=== PATIENT | female | born 1960 | race Caucasian/White ===

== ENCOUNTER 2016-08-08 01:04 | Emergency (ER) | payer OTHER ==
[~2016-08-08] VITALS: Ht 167.6 cm; Wt 67.0 kg
[~2016-08-08 01:04] MED LIST: APIX2.5T PO; APIX5TAB PO; CALCTAB23; FURO20 PO; GABA300C3 PO; HYDR-3129 PO; LIPI10TA PO; POTA20PA PO; PROT40TA PO; ST J81CH PO; TOPA25TA8 PO; ULTR50TA PO; VITA100L SUCK-ON; VITA50TA30 PO; ZOFR4TAB3 SL
[2016-08-08 01:08] VITALS: BP 103/56; PULSE 79; RESP 16; TEMP 97.1; O2SAT 97
== END 2016-08-08 02:26 | disposition left against medical advice (07) ==
LOC: NED 01:04
DX: Z04.9 Encounter for examination and observation for unspecified reason (principal)
CPT/HCPCS: 99281

== ENCOUNTER 2016-08-11 13:25 | Emergency (ER) | payer OTHER ==
[~2016-08-11] VITALS: Ht 165.1 cm; Wt 63.0 kg
[2016-08-11 13:27] VITALS: BP 101/59; PULSE 81; RESP 15; TEMP 97.8; O2SAT 98
--- NOTE | 2016-08-11 13:48 | PD ---
Physical Exam Time Seen by Provider: 13:44 Narrative 56yo F with c/o R hip pain since after hearing a "pop" while trotting on a horse. She did fall from a horse over a week ago Monday w/ a little R hip pain at that time. Cannot bear weight. Denies fever. Reports nausea w/o vomiting. Patient stable. Patient seen in triage. Awaiting bed placement. Data Data Last Documented VS Vital Signs Date Time Temp Pulse Resp B/P Pulse Ox O2 Delivery O2 Flow Rate FiO2 08/11/16 13:27 97.8 81 15 101/59 98 MDM Supervised Visit with JOSSELINE: Kat Kaur Aug 11, 2016 13:48
--- NOTE | 2016-08-11 13:54 | PD ---
HPI . right hip pain Chief Complaint: Injury Time Seen by Provider: 13:54 Travel History International Travel<30 days: No Contact w/Intl Traveler<30days: No Traveled to known affect area: No History of Present Illness HPI 56-year-old female with history of hyperlipidemia, migraine, osteoarthritis, GERD, CVA in 2013, multiple TIAs here with complaints of right hip pain for over one week. Patient was riding a horse when she somehow slipped off the saddle and hurt her right hip. She is been working despite the pain and shortly after her initial injury she somehow hurt herself while trotting on another horse. She is now complaining of pain in the right hip. She is unable to bear weight and states the pain is 9/10 without further radiation. She tried to see her primary care provider, but there was some discrepancy as far as insurance coverage whether or not this was a workers comp case. Patient said that her initial injury happened at someone else's house on another horse. She tells me that the second injury occurred while at work, however she is not seeking workers comp. She denies any head injury or loss of consciousness. She has no other complaints. PFSH Past Medical History Arthritis: Yes (FEET, BACK, RIGHT HIP) Asthma: No Anxiety: Yes Depression: Yes Heart Rhythm Problems: Yes (HX SVT ABLATION-2008) Cancer: No Cardiovascular Problems: Yes (SVT / ABLATION) High Cholesterol: No Chest Pain: Yes Congestive Heart Failure: No COPD: No Cerebrovascular Accident: Yes Diabetes: No Diminished Hearing: Yes (RIGHT EAR HEARING LOSS) Endocrine: No Gastrointestinal Disorders: Yes (GERD, ESOPH. STRICTURE, DUOD. ULCER HX) GERD: Yes Genitourinary: No Hepatitis: Yes (HEP C TITER POS. NON-ACTIVE) Hiatal Hernia: Yes Immune Disorder: No Kidney Stones: No Musculoskeletal: Yes (ARTHRITIS, CERVICAL FUSION) Neurologic: Yes (TIA HX, NUMBNESS HANDS/ FEET) Psychiatric: No Reproductive: No Respiratory: Yes (BRONCHITIS) Renal Failure: No Sleep Apnea: No Thyroid Disease: No Ulcer: Yes (HX DUODENAL ULCER) ?: Not Menopausal: Yes : 3 Para: 1 Miscarriage: 1 : 1 Tubal Ligation: Yes Past Surgical History Abdominal Surgery: Yes (CHOLECYSTECTOMY) AICD: No Body Medical Devices: CERVICAL HARDWARE Cardiac Surgery: Yes (SVT, ABLATION-2008) Cholecystectomy: Yes Ear Surgery: Yes (MULTIPLE PE TUBES) Gynecologic Surgery: Yes (TUBAL LIG.) Joint Replacement: No Neurologic Surgery: Yes (CERVICAL FUSION C5-7) Oral Surgery: Yes (T & A) Pacemaker: No Tonsillectomy: Yes Other Surgery: Yes (LIVER BIOPSY-05/23/13 BONE SPUR SURGERY -10/2012, BROKEN NOSE REPAIRED X 2) Family History Family Hypercholesterolemia: Yes Social History Alcohol Use: No (HX OF ) Tobacco Use: No (QUIT 1988) Substance Use: No (QUIT ) Allergies-Medications (Allergen,Severity, Reaction): Coded Allergies: Adhesives (Verified Allergy, Severe, BLISTERS, 08/11/16) Iodinated Contrast Media (Verified Allergy, Severe, NAUSEA, 08/11/16) Reported Meds & Prescriptions Reported Meds & Active Scripts Active Reported Zofran ODT (Ondansetron HCl) 4 Mg Tab 4 Mg SL Q6H PRN FOR NAUSEA/VOMITING Calcium 500 + D (Calcium Carbonate-Vitamin D) +D Tab Vitamin B 6 (Pyridoxine HCl) 50 Mg Tab 50 Mg PO DAILY Ultram (Tramadol HCl) 50 Mg Tab 50 Mg PO Q4H PRN Aspirin 81 mg chewable (Aspirin) 81 Mg Chw 81 Mg PO DAILY Klor-Con (Potassium Chloride) 20 Meq Pow 20 Meq PO DAILY *DISSOLVE POWDER IN 4 OUNCES OF WATER* Eliquis (Apixaban) 5 Mg Tab 5 Mg PO Gabapentin 300 Mg Cap 300 Mg PO BID Protonix (Pantoprazole Sodium) 40 Mg Tabdr 40 Mg PO DAILY Vitamin B 12 (Cyanocobalamin) 100 Mcg Carley 100 Mcg SUCK-ON Lasix 20 Mg Tab (Furosemide) 20 Mg Tab 20 Mg PO DAILY Topamax (Topiramate) 25 Mg Tab 25 Mg PO BID Lipitor 10 Mg Tab (Atorvastatin Calcium) 10 Mg Tab 1 Tab PO DAILY Eliquis (Apixaban) 2.5 Mg Tab 2.5 Mg PO [place] 10/325 (Hydrocodone-Acetaminophen 10/325) Acetaminophen 325/10 Hydrocodone Tab 1 Tab PO Q6H PRN Review of Systems General / Constitutional: No: Fever Eyes: No: Visual changes HENT: No: Headaches Cardiovascular: No: Chest Pain or Discomfort Respiratory: No: Shortness of Breath Gastrointestinal: No: Abdominal Pain Genitourinary: No: Dysuria Musculoskeletal: Positive: Pain (right hip pain) Skin: No Rash Neurologic: No: Weakness Psychiatric: No: Depression Endocrine: No: Polydipsia Hematologic/Lymphatic: No: Easy Bruising Physical Exam Narrative GENERAL: AAO x 3, no acute distress, Well-nourished, well-developed patient. SKIN: Warm and dry. No visible rashes or bruising. HEAD: Normocephalic and atraumatic. EYES: No scleral icterus. No injection or drainage. ENT: No nasal drainage noted. Mucous membranes pink. Airway patent. NECK: Supple, trachea midline. No JVD. CARDIOVASCULAR: Regular rate and rhythm without murmurs, gallops, or rubs. RESPIRATORY: Breath sounds equal bilaterally. No accessory muscle use. No rhonchi or rales. GASTROINTESTINAL: Visual inspection is normal. EXTREMITIES: No cyanosis or edema. right hip no obvious deformity, pain with movement internal and external elicits more pain.SLR + left leg normal ROM BACK: Nontender without obvious deformity. No CVA tenderness. PSYCH: AAO x 3, normal affect. Data Data Last Documented VS Vital Signs Date Time Temp Pulse Resp B/P Pulse Ox O2 Delivery O2 Flow Rate FiO2 08/11/16 13:27 97.8 81 15 101/59 98 Orders Oxycodone-Acetamin 5-325 Mg (Percocet (08/11/16 14:00) Hip, Uni(Ap&Lat) W Ap Pelvis (08/11/16 13:58) MDM Medical Decision Making Medical Screen Exam Complete: Yes Emergency Medical Condition: Yes Medical Record Reviewed: Yes Differential Diagnosis Hip contusion, hip fracture, less likely dislocation Narrative Course 56-year-old female with history of hyperlipidemia, migraine, osteoarthritis, GERD, CVA in 2013, multiple TIAs here with complaints of right hip pain for over one week. Patient was riding a horse when she somehow slipped off the saddle and hurt her right hip. She is been working despite the pain and shortly after her initial injury she somehow hurt herself while trotting on another horse. She is now complaining of pain in the right hip. She is unable to bear weight and states the pain is 9/10 without further radiation. She tried to see her primary care provider, but there was some discrepancy as far as insurance coverage whether or not this was a workers comp case. Patient said that her initial injury happened at someone else's house on another horse. She tells me that the second injury occurred while at work, however she is not seeking workers comp. She denies any head injury or loss of consciousness. She has no other complaints. Patient seen and examined. She does have significant pain with internal and external rotation of the right hip. I will check an x-ray to rule out any type of fracture. pain medication given in ED Xray negative. Discussed with patient. She has already been prescribed soma and tramadol by her PCP. She has not taken it. I advised her that she can take these medications as needed. I advised her that I would provide muscle relaxers and ibuprofen. She is already on diclofenac. Since she is already on similar medications she will use those. Advised rest from riding horses for about 1 week as this is likely muscular and nerve related. F/U with PCP. Patient verbalized understanding of instructions, questions were answered, and thanked me for their care. I advised them if their condition worsens, please return to the nearest emergency room for further care. Diagnosis Primary Impression: Hip pain, right Patient Instructions: General Instructions Additional Instructions: Please return to emergency department if your symptoms return or worsen. Follow up with your primary care provider. Take medications as prescribed. Follow-up with her primary care provider in 7-10 days if symptoms persist. Try to rest and refrain from riding a horse for the next 3-5 days. Med/Other Pt SpecificInfo: No Change to Meds Disposition: 01 DISCHARGE HOME Condition: Stable Laina Artis Aug 11, 2016 13:54
[2016-08-11] MEDS ORDERED: oxyCODONE/ACETAMINOPHEN 5 MG/325 MG TAB PO ONE (14:00)
--- NOTE | 2016-08-11 14:37 | RADRPT ---
EXAM DATE/TIME: 08/11/2016 14:19 [facility] COMPARISON: No previous studies available for comparison. INDICATIONS : Right hip pain after falling off a horse. MEDICAL HISTORY : Congestive heart failure. SURGICAL HISTORY : None. ENCOUNTER: Initial ACUITY: 4 - 6 days PAIN SCORE: 9/10 LOCATION: Right hip joint and down back of the leg. FINDINGS: No definite fractures, or dislocations are identified. No definite lytic or sclerotic lesion is seen . The joint spaces are well maintained. CONCLUSION: Unremarkable study. Rico Alvarado MD on August 11, 2016 at 14:34 Board Certified Radiologist. This report was verified electronically.
== END 2016-08-11 15:03 | disposition home or self-care (01) ==
LOC: NEPK 13:25
DX: M25.551 Pain in right hip (principal); W01.0XXA Fall on same level from slipping, tripping and stumbling without subsequent striking against object, initial encounter; Y93.52 Activity, horseback riding; Y92.79 Other farm location as the place of occurrence of the external cause; Y99.0 Civilian activity done for income or pay
CPT/HCPCS: 73502; 99283

== ENCOUNTER 2017-12-04 16:43 | Inpatient (IN) ==
--- NOTE | 2017-12-04 16:55 | ED ---
HPI General Chief complaint: Neuro Symptoms/Deficit Stated complaint: stroke Time Seen by Provider: 12/04/17 16:47 History of Present Illness HPI narrative: This is a 57yo female, brought by [facility] for stroke alert. pt is not giving history, appears confused, follow commands randomly, knows what year and who is the President , not oriented to place, unknown when she was last seen normal, according to the paramedics, patient was arguing with them because she did not want to come to the hospital, they convinced her to come to the ER, when they had her get up they noticed slight imbalance of her gait, no slurred speech but slow response to the paramedics questions, they called stroke alert based on those findings. when arrived at the ER pt is following commands, no focal deficits, complains of pain behind her left eye. Upon reviewing the chart , she has history of stroke in August of 2013 with a previous TIA in 2011, since then she suffers from migraines, medications list with the patient shows PRADAXA. Given the inconsistent history, unknown when last seen normal, no focal deficits , and patient taking pradaxa ( unclear when was last dose) , pt is not a candidate for TPA. Looks to me pt may have a complicated migraine rather than a stroke. 17:20 re-evaluated the patient, now she is AAOx3, able to follow commands, says she has history of migraines and tramadol works for her, no focal deficits, no slurred speech, no neurological symptoms but complains of pain behind her left eye, elevated ETOH but she says last drink was last night ( 2 shots of tequila) . Related Data Home Medications Medication Instructions Recorded Confirmed aspirin [Aspirin Low Dose] 81 mg PO DAILY 12/04/17 12/04/17 calcium carbonate-vitamin D3 1 tab PO TID 12/04/17 12/04/17 [Calcium 500 + D] carisoprodol 350 mg PO BID PRN 12/04/17 12/04/17 dabigatran etexilate [Pradaxa] 150 mg PO BID 12/04/17 12/04/17 diazepam [Valium] 5 mg PO DAILY PRN 12/04/17 12/04/17 diclofenac sodium 75 mg PO BID PRN 12/04/17 12/04/17 furosemide [Lasix] 20 mg PO DAILY 12/04/17 12/04/17 lactobacillus combination no.4 3,000 mmu cells PO DAILY 12/04/17 12/04/17 [Probiotic] multivitamin 1 tab PO DAILY 12/04/17 12/04/17 ondansetron 4 mg PO TID PRN 12/04/17 12/04/17 pantoprazole 40 mg PO DAILY 12/04/17 12/04/17 potassium chloride 10 meq PO DAILY 12/04/17 12/04/17 topiramate 50 mg PO BID 12/04/17 12/04/17 tramadol 50 mg PO Q6H PRN 12/04/17 12/04/17 triamcinolone acetonide [Nasacort] 1 spray INTRANASAL DAILY PRN 12/04/17 Allergies Allergy/AdvReac Type Severity Reaction Status Date / Time adhesive Allergy Severe Blisters Verified 12/04/17 17:14 Iodinated Contrast- Oral and AdvReac Intermediate Nausea Verified 12/04/17 17:14 IV Dye Review of Systems ROS Unobtainable ROS Unobtainable: unobtainable due to mental condition [facility] Medical History Medical History CVA (cerebral vascular accident) (Acute) Hepatitis C (Acute) SVT (supraventricular tachycardia) (Acute) TIA (transient ischemic attack) (Acute) Tubal ligation status (Acute) Surgical History Surgical History H/O cardiac radiofrequency ablation (Acute) H/O neck surgery (Acute) H/O toe surgery (Acute) History of surgery on arm (Acute) Social History Social History Substance History: Active Abuse Smoking Status: Former smoker How Often Do You Have a Drink Containing Alcohol: 4 or more times a week Recent Travel in [facility] within the Last 8 Weeks: Yes Recent Out of Country Travel within the Last 8 Weeks: No Exam Narrative Exam Narrative: GENERAL: Alert oriented 3 no acute distress SKIN: Focused skin assessment warm/dry. HEAD: Atraumatic. Normocephalic. EYES: Pupils equal and round. No scleral icterus. No injection or drainage. ENT: No nasal bleeding or discharge. Mucous membranes pink and moist. NECK: Trachea midline. No JVD. CARDIOVASCULAR: Regular rate and rhythm. No murmur appreciated. RESPIRATORY: No accessory muscle use. Clear to auscultation. Breath sounds equal bilaterally. GASTROINTESTINAL: Abdomen soft, non-tender, nondistended. Hepatic and splenic margins not palpable. MUSCULOSKELETAL: No obvious deformities. No clubbing. No cyanosis. No edema. NEUROLOGICAL: Awake and alert. No obvious cranial nerve deficits. Motor grossly within normal limits. Normal speech. PSYCHIATRIC: Appropriate mood and affect; insight and judgment normal. Course Initial Documented Vital Signs Temperature 98.2 F 12/04/17 17:00 Pulse Rate 82 12/04/17 17:00 Respiratory Rate 18 12/04/17 17:00 Blood Pressure 98/58 L 12/04/17 17:00 Pulse Oximetry 98 12/04/17 17:00 Last Documented Vital Signs Temperature 98.2 F 12/04/17 17:00 Pulse Rate 82 12/04/17 17:00 Respiratory Rate 18 12/04/17 17:00 Blood Pressure 98/58 L 12/04/17 17:00 Pulse Oximetry 98 12/04/17 17:00 Medical Decision Making MDM Narrative Medical decision making narrative: 57-year-old history of migraines and strokes in the past as well as TIAs a year for a stroke alert was activated by the paramedics. Patient might have had a complicated migraine, however, if it is elevated, she takes Valium at home as well as Pradaxa. Patient is not a candidate for TPA. She has no focal deficits, currently has no symptoms except left eye pain, patient will be admitted for possible TIA. Spoke with Dr. Sharp neurology fashion consultant as well as Dr. Smith primary care physician. Lab Data Result diagrams: 12/04/17 16:30 12/04/17 16:30 Lab Results 12/04/17 12/04/17 12/04/17 Range/Units 16:30 16:30 16:30 CBC w Diff Auto diff final WBC 6.4 (4.0-11.0) th/mm3 RBC 4.30 (4.00-5.30) mil/mm3 Hgb 14.3 (11.6-15.3) gm/dL Hct 43.3 (35.0-46.0) % MCV 100.9 H (80.0-100.0) fL MCH 33.4 (27.0-34.0) pg MCHC 33.1 (32.0-36.0) % RDW 13.1 (11.6-17.2) % Plt Count 359 (150-450) th/mm3 MPV 7.9 (7.0-11.0) fL Neut % (Auto) 56.8 (16.0-70.0) % Lymph % (Auto) 35.4 (9.0-44.0) % [place] % (Auto) 4.9 (0.0-8.0) % Eos % (Auto) 1.1 (0.0-4.0) % Baso % (Auto) 1.8 (0.0-2.0) % Neut # (Auto) 3.7 (1.8-7.7) th/mm3 Lymph # (Auto) 2.3 (1.0-4.8) th/mm3 [place] # (Auto) 0.3 (0.0-0.9) th/mm3 Eos # (Auto) 0.1 (0.0-0.4) th/mm3 Baso # (Auto) 0.1 (0.0-0.2) th/mm3 WBC Differential . Differential Comment . PT 10.7 (9.8-11.6) sec INR 1.1 Ratio APTT 35.2 H (24.3-30.1) sec Sodium 139 (136-145) meq/L Potassium 3.2 L (3.5-5.1) meq/L Chloride 103 (98-107) meq/L Carbon Dioxide 24.2 (21.0-32.0) meq/L Anion Gap 12 (5-15) meq/L BUN 17 (7-18) mg/dL Creatinine 0.90 (0.50-1.00) mg/dL Estimated GFR 64 L (>89) mL/min Random Glucose 80 (74-106) mg/dL Calcium 8.9 (8.5-10.1) mg/dL Total Bilirubin 0.2 (0.2-1.0) mg/dL AST 28 (15-37) U/L ALT 21 (10-53) U/L Alkaline Phosphatase 108 (45-117) U/L Total Creatine Kinase 90 (26-192) U/L Troponin I Less than 0.02 L (0.02-0.05) ng/mL Total Protein 8.4 H (6.4-8.2) g/dL Albumin 4.6 (3.4-5.0) g/dL Serum Alcohol 301 H (0-5) mg/dL Imaging Data Radiologist's impression: Chest X-Ray 12/04/17 16:47 CONCLUSION: 1. No acute cardiopulmonary disease. Head CT 12/04/17 16:47 CONCLUSION: 1. No acute intracranial abnormality. Report was called by Dr. Garvin to Dr. Dumont at 1701. Discharge Plan Discharge Disposition Patient Disposition: 30 Still Patient Discharge Condition Condition: Stable Discharge Details Diagnosis: Brain TIA Physicians Team ED Provider: Dre Barrett Primary Care Provider: UNKNOWN, Rxs /Orders / Referrals /Forms Prescriptions: No Action multivitamin Tablet 1 tab PO DAILY RF: 0 carisoprodol 350 mg Tablet 350 mg PO BID PRN (Reason: Muscle Spasm) RF: 0 potassium chloride 10 mEq Tablet Extended Release 10 meq PO DAILY RF: 0 aspirin [Aspirin Low Dose] 81 mg Tablet,Delayed Release (Dr/Ec) 81 mg PO DAILY RF: 0 tramadol 50 mg Tablet 50 mg PO Q6H PRN (Reason: Migraine Headache) RF: 0 pantoprazole 40 mg Tablet,Delayed Release (Dr/Ec) 40 mg PO DAILY RF: 0 triamcinolone acetonide [Nasacort] 55 mcg Aerosol,[place] 1 spray INTRANASAL DAILY PRN (Reason: Allergy Symptoms) RF: 0 diclofenac sodium 75 mg Tablet,Delayed Release (Dr/Ec) 75 mg PO BID PRN (Reason: Pain) RF: 0 furosemide [Lasix] 20 mg Tablet 20 mg PO DAILY RF: 0 ondansetron 4 mg Tablet,Disintegrating 4 mg PO TID PRN (Reason: Nausea) RF: 0 diazepam [Valium] 5 mg Tablet 5 mg PO DAILY PRN (Reason: Anxiety) RF: 0 topiramate 50 mg Tablet 50 mg PO BID RF: 0 calcium carbonate-vitamin D3 [Calcium 500 + D] 500 mg(1,250mg) -200 unit Tablet 1 tab PO TID RF: 0 dabigatran etexilate [Pradaxa] 150 mg Capsule 150 mg PO BID RF: 0 lactobacillus combination no.4 [Probiotic] 3 billion cell Capsule 3,000 mmu cells PO DAILY RF: 0 Status ED Status: With Doctor
--- NOTE | 2017-12-04 17:04 | CT ---
EXAM DATE: 12/04/2017 4:57 PM EDT AGE/SEX: 57 years / Female INDICATIONS: Stroke alert. Slurred speech and confusion. CLINICAL DATA: This is the patient's initial encounter. Patient reports that signs and symptoms have been present for 1 day and indicates a pain score of Nonresponsive. MEDICAL/SURGICAL HISTORY: Non-responsive. Non-responsive. RADIATION DOSE: 58.55 CTDI (mGy) COMPARISON: [facility], MR BRAIN W AND W/O CONTRAST, 11/12/2014. . TECHNIQUE: CT of the head without contrast. Using automated exposure control and adjustment of the mA and/or kV according to patient size, radiation dose was kept as low as reasonably achievable to ob tain optimal diagnostic quality images. DICOM format image data is available electronically for revi ew and comparison. FINDINGS: Cerebrum: Mild diffuse cerebral atrophy. The ventricles are normal for degree of atrophy. No evidenc e of midline shift, mass lesion, hemorrhage or acute infarction. No extraaxial fluid collections are seen. Posterior Fossa: The cerebellum and brainstem are intact. The 4th ventricle is midline. The cerebe llopontine angle is unremarkable. Extracranial: The visualized portion of the orbits is intact. Skull: The calvaria is intact. No evidence of skull fracture. CONCLUSION: 1. No acute intracranial abnormality. Report was called by Dr. Garvin to Dr. Dumont at 1701. Electronically signed by: Joao Riggs MD 12/04/2017 5:02 PM EDT
[2017-12-04 17:12] LABS: Baso # (Auto) 0.1 th/mm3 (0.0-0.2); Baso % (Auto) 1.8 % (0.0-2.0); Eos # (Auto) 0.1 th/mm3 (0.0-0.4); Eos % (Auto) 1.1 % (0.0-4.0); Hematocrit 43.3 % (35.0-46.0); Hemoglobin 14.3 gm/dL (11.6-15.3); Lymph # (Auto) 2.3 th/mm3 (1.0-4.8); Lymph % (Auto) 35.4 % (9.0-44.0); Mean Corpuscular HGB Conc 33.1 % (32.0-36.0); Mean Corpuscular Hemoglobin 33.4 pg (27.0-34.0); Mean Corpuscular Volume 100.9 fL (80.0-100.0); Mean Platelet Volume 7.9 fL (7.0-11.0); Mono # (Auto) 0.3 th/mm3 (0.0-0.9); Mono % (Auto) 4.9 % (0.0-8.0); Neut # (Auto) 3.7 th/mm3 (1.8-7.7); Neut % (Auto) 56.8 % (16.0-70.0); Platelet Count 359 th/mm3 (150-450); Red Cell Distribution Width 13.1 % (11.6-17.2); White Blood Count 6.4 th/mm3 (4.0-11.0)
--- NOTE | 2017-12-04 17:14 | XR ---
EXAM DATE: 12/04/2017 5:11 PM EDT AGE/SEX: 57 years / Female INDICATIONS: Stroke alert. CLINICAL DATA: This is the patient's initial encounter. Patient reports that signs and symptoms have been present for 1 day and indicates a pain score of Nonresponsive. MEDICAL/SURGICAL HISTORY: Non-responsive. Non-responsive. COMPARISON: [facility], CHEST SINGLE AP, 11/16/2013. . FINDINGS: No significant focal pleural or parenchymal opacities. The cardiomediastinal contours are unremarkabl e. Osseous structures are intact. CONCLUSION: 1. No acute cardiopulmonary disease. Electronically signed by: Joao Riggs MD 12/04/2017 5:12 PM EDT
[2017-12-04 17:22] LABS: Chloride 103 meq/L (98-107); Potassium 3.2 meq/L (3.5-5.1); Sodium 139 meq/L (136-145)
[2017-12-04 17:25] LABS: Calcium 8.9 mg/dL (8.5-10.1)
[2017-12-04 17:26] LABS: Albumin 4.6 g/dL (3.4-5.0); Anion Gap 12 meq/L (5-15); Blood Urea Nitrogen 17 mg/dL (7-18); Carbon Dioxide 24.2 meq/L (21.0-32.0); Glucose,Random 80 mg/dL (74-106)
[2017-12-04 17:27] LABS: Activated Partial Thrombo Time 35.2 sec (24.3-30.1); INR 1.1 Ratio; Prothrombin Time 10.7 sec (9.8-11.6)
[2017-12-04 17:29] LABS: Alanine Aminotransferase 21 U/L (10-53); Aspartate Aminotransferase 28 U/L (15-37); Glomerular Filtration Rate 64 mL/min (>89)
[2017-12-04 17:30] LABS: Total Protein 8.4 g/dL (6.4-8.2)
[2017-12-04 17:32] LABS: Alkaline Phosphatase 108 U/L (45-117)
[2017-12-04 17:35] LABS: Alcohol 301 mg/dL (0-5); Creatine Kinase 90 U/L (26-192)
[2017-12-04] MEDS ORDERED: LORazepam 1 MG Tablet PO PRN (17:45)
[2017-12-04] MEDS ORDERED: Haloperidol Inj 5 MG/ML Ampul IV.PUSH PRN (17:45)
[2017-12-04] MEDS: Butalbital/APAP/Caff 50/325/40 MG Tablet PO PRN (19:29)
[2017-12-04 19:54] LABS: Bilirubin,Urine Negative (Negative); Clarity,Urine Clear (Clear); Color,Urine Yellow (Yellw/Straw); Glucose,Urine (UA) Negative (Negative); Leukocyte Esterase,Urine Negative (Negative); Nitrite,Urine Negative (Negative); Specific Gravity,Urine 1.015 (1.002-1.035); Urobilinogen,Urine 0.2 mg/dL (Less than 2)
[2017-12-04 20:02] LABS: Amphetamine Screen,Urine Neg (Neg); Barbiturate Screen,Urine Neg (Neg); Cocaine Screen,Urine Neg (Neg)
[2017-12-04 20:03] LABS: Cannabinoid Screen,Urine Neg (Neg); Squamous Epithelial Cell,Urine 0-5 /hpf (0-5)
[2017-12-04 20:04] LABS: Opiate Screen,Urine Neg (Neg)
--- NOTE | 2017-12-04 22:46 | MB ---
cc: Anand Sharp MD, PhD DATE: 12/04/2017 REASON FOR CONSULTATION: Stroke alert. HISTORY OF PRESENT ILLNESS: Ms. Guzman is a 57-year-old female known to me who has a history of migraine headaches. She has been on Topamax with very good control of her migraines, getting them very infrequently. 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 She continued to drive. She had no recall of the driving back to her house in [place]. She had some disorientation as well, not knowing where she was. She had no focal deficits. 911 was called by her family. She was brought to the hospital and was called as a stroke alert in the field. When she arrived here, she was noted by the ER physician to be on Pradaxa. It was unknown when she was last seen normal. She had no focal deficits seen. She has since recovered back to normal. She did have a mild headache. PAST MEDICAL HISTORY: History of migraine headaches, SVT, stroke in the past, hepatitis C, tubal ligation, cardiac radiofrequency ablation, spine surgery in the neck, arm surgery in the past. MEDICINES AT HOME: She takes Pradaxa as well as aspirin. PHYSICAL EXAMINATION: VITAL SIGNS: Blood pressure is 98/58, pulse is 82, respiratory rate is 18, temperature 98 degrees. NEUROLOGIC: Higher cortical functions are normal at the present time. Cranial nerves 2-12 are normal in detail. Motor exam shows 5/5 in all groups. There is no drift. Fine motor skills are normal. Reflexes are symmetric. IMAGING STUDIES: CT of the brain, no acute change present. LABORATORY DATA: White count 6400, hemoglobin 14.3, hematocrit 43%, platelet count 359,000. PT 10.7, INR 1.1, aPTT 35.2. Sodium 139, potassium 3.2, chloride 103, CO2 of 24.2, BUN 17, creatinine 0.9, GFR 64, glucose 80. Tox screen, alcohol level 301. IMPRESSION: Probable transient global amnesia. I think the most likely etiology would be migraine equivalent. A transient ischemic attack is less likely. RECOMMENDATIONS: We will evaluate her further with an MRI/MRA of the brain, echocardiogram and carotid ultrasound. Continue Pradaxa. Continue her Topamax as well. Anand Sharp MD, PhD LUCHO/tenisha , 07:54 PM , 08:01 PM
[2017-12-05] MEDS ORDERED: Carisoprodol 350 MG Tablet PO PRN (08:45)
[2017-12-05] MEDS ORDERED: TRIAMCINOLONE ACETONIDE EACH NARE PRN (09:01)
--- NOTE | 2017-12-05 09:15 | P.HPFP ---
History of Present Illness Service: Family Medicine Primary Care Physician: Jamal Smith DO History of Present Illness: brought in by [facility] for gait disturbance and slurred speech. She voices she started to feel funny in [facility] parking lot.Developed pain behind left eye. She was talking to her son on phone he lives in [place]. When she got home her mother called [facility]. She has episode like this in past Hx of CVA in 2013, and multiple Tia in 2011. She is on Pradaxa. She see's Dr Sharp regularly for migraines. Hx of SVT with ablation and Hep- C. - Diagnosis (1) Brain TIA (2) Migraine (3) SVT (supraventricular tachycardia) Inpatient Certification: I certify that the inpatient services were ordered in accordance with Medicare regulations governing the order. This includes certification that hospital inpatient services are reasonable and necessary and in the case of services not specified as inpatient-only under 42 CFR 419.22(n), that they are appropriately provided as inpatient services in accordance to with the 2-midnight benchmark under 43 CFR 412.3(e) Estimated Total Length of Stay (Days): 5 Plans for Post Hospital Care: Home Review of Systems All other systems reviewed negative except as stated in HPI PMFSH - History History Provided By: Patient - Medical History Medical History: Medical History (Last Updated 12/04/17 @ 17:21 by Gabriella Wong RN) CVA (cerebral vascular accident) Hepatitis C SVT (supraventricular tachycardia) TIA (transient ischemic attack) Tubal ligation status - Surgical History Surgical History: Surgical History (Last Updated 12/04/17 @ 17:21 by Gabriella Wong RN) H/O cardiac radiofrequency ablation H/O neck surgery H/O toe surgery History of surgery on arm - Tobacco History Second Hand Smoke Exposure: No Tobacco Use In Past 30 Days: No Smoking Status: Never smoker Tobacco Type: Cigarettes - Alcohol History How Often Do You Have a Drink Containing Alcohol: 4 or more times a week - Substance Use History Substance History: Past History - Substance Use Type Alcohol Status: Sustained Remission Route Used: By Mouth Frequency: States she takes two shots of tequila a day - Travel History Recent Travel in the [place] Within the Last 8 Weeks: Yes Recent Travel Out of the Country Within the Last 8 Weeks: No - Immunization History Tetanus Immunization: <5 Years Hx Influenza Vaccine This Season: No Medications and Allergies Active Medications: Active Medications Acetaminophen/Butalbital/Caffeine (Fioricet 50-325-40) 1 tab PO Q6H PRN PRN Reason: HEADACHE Last Admin: 12/04/17 19:29 Dose: 1 tab Flumazenil (Romazecon Inj) 0.2 mg IV.PUSH Q1M PRN PRN Reason: OVERSEDATION Haloperidol Lactate (Haldol Inj) 1 mg IV.PUSH Q15M PRN PRN Reason: for severe agitation Lorazepam (Ativan Inj) 1 mg IV.PUSH Q4H PRN PRN Reason: for CIWA 8-10 Lorazepam (Ativan Inj) 2 mg IV.PUSH Q1H PRN PRN Reason: for CIWA 15-20 Lorazepam (Ativan Inj) 2 mg IV.PUSH Q2H PRN PRN Reason: for CIWA 11-14 Lorazepam (Ativan) 2 mg PO Q2H PRN PRN Reason: for CIWA 11-14 Lorazepam (Ativan Inj) 2 mg IV.PUSH Q15M PRN PRN Reason: for CIWA > 20 Lorazepam (Ativan) 1 mg PO Q4H PRN PRN Reason: for CIWA 8-10 Allergies Allergy/AdvReac Type Severity Reaction Status Date / Time adhesive Allergy Severe Blisters Verified 12/04/17 17:14 Iodinated Contrast- Oral and AdvReac Intermediate Nausea Verified 12/04/17 17:14 IV Dye Home Medications Medication Instructions Recorded Confirmed Type aspirin [Aspirin Low Dose] 81 mg PO DAILY 12/04/17 12/04/17 History calcium carbonate-vitamin D3 1 tab PO TID 12/04/17 12/04/17 History [Calcium 500 + D] carisoprodol 350 mg PO BID PRN 12/04/17 12/04/17 History dabigatran etexilate [Pradaxa] 150 mg PO BID 12/04/17 12/04/17 History diazepam [Valium] 5 mg PO DAILY PRN 12/04/17 12/04/17 History diclofenac sodium 75 mg PO BID PRN 12/04/17 12/04/17 History furosemide [Lasix] 20 mg PO DAILY 12/04/17 12/04/17 History lactobacillus combination no.4 3,000 mmu cells PO DAILY 12/04/17 12/04/17 History [Probiotic] multivitamin 1 tab PO DAILY 12/04/17 12/04/17 History ondansetron 4 mg PO TID PRN 12/04/17 12/04/17 History pantoprazole 40 mg PO DAILY 12/04/17 12/04/17 History potassium chloride 10 meq PO DAILY 12/04/17 12/04/17 History topiramate 50 mg PO BID 12/04/17 12/04/17 History tramadol 50 mg PO Q6H PRN 12/04/17 12/04/17 History triamcinolone acetonide [Nasacort] 1 spray INTRANASAL DAILY PRN 12/04/17 History Exam Vital signs: Vital Signs 12/04/17 17:00 12/04/17 17:55 12/04/17 18:25 Temperature 98.2 F Pulse Rate 82 72 85 Respiratory Rate 18 18 18 Blood Pressure 98/58 L 94/53 L 100/60 Pulse Oximetry 98 97 97 12/04/17 20:00 12/05/17 00:00 12/05/17 07:13 Temperature 96.7 F L 98 F 96.4 F L Pulse Rate 75 75 74 Respiratory Rate 18 18 20 Blood Pressure 109/60 103/55 L 102/59 L Pulse Oximetry 97 95 98 Intake & Output 12/04/17 12/05/17 12/05/17 18:59 06:59 18:59 Intake Total 960 / 960 Balance 960 / 960 Weight 89.5 kg 66.3 kg Intake: Oral 960 / 960 Other: # Voids 1 # Urine Diapers 0 Weight On Admission 66.3 kg - Constitutional no acute distress - Routine HEENT Exam Head: Present: normocephalic Eye: Present: PERRL ENT: Present: mucous membranes moist - Routine Neck Exam Present: supple - Routine Respiratory Exam Present: CTA bilaterally - Routine Cardiovascular Exam Present: RRR, S1, S2 - Routine Abdominal Exam Present: soft, normoactive bowel sounds - Routine Extremities Exam Present: full ROM, pulses intact, normal capillary refill - Routine Skin Exam Present: intact - Routine Neurological Exam Present: alert, oriented X3, CN II-XII intact - Routine Psychiatric Exam Present: cooperative Results - Labs Result diagrams: 12/04/17 16:30 12/04/17 16:30 Abnormal lab results 12/04/17 12/04/1718 Range/Units 16:30 16:30 16:30 MCV 100.9 H (80.0-100.0) fL APTT 35.2 H (24.3-30.1) sec Potassium 3.2 L (3.5-5.1) meq/L Estimated GFR 64 L (>89) mL/min Troponin I Less than 0.02 L (0.02-0.05) ng/mL Total Protein 8.4 H (6.4-8.2) g/dL Urine Ketones (Negative) mg/dL U Benzodiazepines Scrn (Neg) Serum Alcohol 301 H (0-5) mg/dL 12/04/17 12/04/17 Range/Units 19:43 19:43 MCV (80.0-100.0) fL APTT (24.3-30.1) sec Potassium (3.5-5.1) meq/L Estimated GFR (>89) mL/min Troponin I (0.02-0.05) ng/mL Total Protein (6.4-8.2) g/dL Urine Ketones Trace H (Negative) mg/dL U Benzodiazepines Scrn Pos H (Neg) Serum Alcohol (0-5) mg/dL Short CBC 12/04/17 Range/Units 16:30 WBC 6.4 (4.0-11.0) th/mm3 Hgb 14.3 (11.6-15.3) gm/dL Hct 43.3 (35.0-46.0) % Plt Count 359 (150-450) th/mm3 BMP 12/04/17 16:30 Sodium 139 Potassium 3.2 L Chloride 103 Carbon Dioxide 24.2 BUN 17 Creatinine 0.90 Calcium 8.9 Cardiac Enzymes 12/04/17 Range/Units 16:30 Total Creatine Kinase 90 (26-192) U/L Troponin I Less than 0.02 L (0.02-0.05) ng/mL Liver Function 12/04/17 Range/Units 16:30 Total Bilirubin 0.2 (0.2-1.0) mg/dL AST 28 (15-37) U/L ALT 21 (10-53) U/L Alkaline Phosphatase 108 (45-117) U/L Albumin 4.6 (3.4-5.0) g/dL Urine 12/04/17 Range/Units 19:43 Urine Color Yellow (Yellw/Straw) Urine Clarity Clear (Clear) Urine pH 6.0 (5.0-8.5) Ur Specific [place] 1.015 (1.002-1.035) Urine Protein Negative (Neg-Trace) mg/dL Urine Glucose (UA) Negative (Negative) mg/dL - Imaging Impressions Chest X-Ray 12/04/17 16:47 CONCLUSION: 1. No acute cardiopulmonary disease. Head CT 12/04/17 16:47 CONCLUSION: 1. No acute intracranial abnormality. Report was called by Dr. Garvin to Dr. Dumont at 1701. Caprini VTE Risk Assessment Caprini VTE Risk Assessment: Moderate/High Risk (score >= 2) (She is on Pradaxa) Caprini Risk Assessment Model: Point Value = 1 Point Value = 2 Point Value = 3 Point Value = 5 Age 41-60 Minor surgery BMI > 25 kg/m2 Swollen legs Varicose veins or History of unexplained or recurrent spontaneous Oral contraceptives or hormone replacement Sepsis (< 1 month) Serious lung disease, including pneumonia (< 1 month) Abnormal pulmonary function Acute myocardial infarction Congestive heart failure (< 1 month) History of inflammatory bowel disease Medical patient at bed rest Age 61-74 Arthroscopic surgery Major open surgery (> 45 min) Laparoscopic surgery (> 45 min) Malignancy Confined to bed (> 72 hours) Immobilizing plaster cast Central venous access Age >= 75 History of VTE Family history of VTE Factor V Leiden Prothrombin [id number] Lupus anticoagulant Anticardiolipin antibodies Elevated serum homocysteine Heparin-induced thrombocytopenia Other congenital or acquired thrombophilia Stroke (< 1 month) Elective arthroplasty Hip, pelvis, or leg fracture Acute spinal cord injury (< 1 month) Prophylaxis Regimen: Total Risk Factor Score Risk Level Prophylaxis Regimen 0-1 Low Early ambulation 2 Moderate Order ONE of the following: *Sequential Compression Device (SCD) *Heparin 5000 units SQ BID 3-4 Higher Order ONE of the following medications: *Heparin 5000 units SQ TID *Enoxaparin/Lovenox 40 mg SQ daily (WT < 150 kg, CrCl > 30 mL/min) *Enoxaparin/Lovenox 30 mg SQ daily (WT < 150 kg, CrCl > 10-29 mL/min) *Enoxaparin/Lovenox 30 mg SQ BID (WT < 150 kg, CrCl > 30 mL/min) AND/OR *Sequential Compression Device (SCD) 5 or more Highest Order ONE of the following medications: *Heparin 5000 units SQ TID (Preferred with Epidurals) *Enoxaparin/Lovenox 40 mg SQ daily (WT < 150 kg, CrCl > 30 mL/min) *Enoxaparin/Lovenox 30 mg SQ daily (WT < 150 kg, CrCl > 10-29 mL/min) *Enoxaparin/Lovenox 30 mg SQ BID (WT < 150 kg, CrCl > 30 mL/min) AND *Sequential Compression Device (SCD) Assessment and Plan - Assessment (1) Brain TIA Code(s): G45.9 - Transient cerebral ischemic attack, unspecified Status: Acute Plan: Neurology consult (2) Migraine Code(s): G43.909 - Migraine, unspecified, not intractable, without status migrainosus Status: Acute Plan: Cont home medications, (3) SVT (supraventricular tachycardia) Code(s): I47.1 - Supraventricular tachycardia Status: Acute Plan: Telemetry monitoring - Assessment and Plan Neurology consult- Mri/ Mra ordered for today today H&P: Quality - VTE Deep Vein Thrombosis/Pulmonary Embolism Present on Admission: No (1) Brain TIA Qualifiers: Transient cerebral ischemia type: unspecified Qualified Code(s): G45.9 - Transient cerebral ischemic attack, unspecified
[2017-12-05] MEDS: Furosemide 20 MG Tablet PO SCH (10:16)
[2017-12-05] MEDS: Calcium/Vitamin D 250/125 MG Tablet PO SCH (10:22)
[2017-12-05] MEDS: Butalbital/APAP/Caff 50/325/40 MG Tablet PO PRN (10:22)
[2017-12-05] MEDS: Topiramate 100 MG Tablet PO SCH ×2 (10:23→20:31)
[2017-12-05] MEDS: Lactobacillus Acidophilus/L. Spores Tablet PO SCH (10:23)
--- NOTE | 2017-12-05 10:28 | US ---
EXAM DATE: 12/05/2017 10:20 AM EDT AGE/SEX: 57 years / Female INDICATIONS: Transient ischemic attack. CLINICAL DATA: This is the patient's initial encounter. Patient reports that signs and symptoms have been present for 1 day and indicates a pain score of 7/10. MEDICAL/SURGICAL HISTORY: Hepatitis C. Stroke. Transient ischemic attack. SVT. . Cardiac ra diofrequency ablation. Neck surgery. Toe surgery. COMPARISON: No prior exams available for comparison. VELOCITY PARAMETERS: ICA/CCA Ratio: Right 0.81 , Left 0.83 ICA: Right 59 cm/sec, Left 83 cm/sec CCA: Right 72 cm/sec, Left 99 cm/sec ECA: Right 44 cm/sec, Left 43 cm/sec Vertebral: Right 42 cm/sec antegrade, Left 50 cm/sec antegrade FINDINGS: Right Carotid: No significant plaque is visualized. Proximal ICA is tortuous.The waveforms are withi n normal limits. Left Carotid: No significant plaque is visualized. Proximal ICA is tortuous. The waveforms are withi n normal limits. Other: None. CONCLUSION: 1. Right Internal Carotid Artery: Proximal tortuosity but otherwise negative. No significant atheros clerotic plaquing. No sonographic or Doppler findings of a hemodynamically significant stenosis 2. Left Internal Carotid Artery: Proximal tortuosity but otherwise negative. No significant atherosc lerotic plaquing. No sonographic or Doppler findings of a hemodynamically significant stenosis. 3. Antegrade flow in both vertebral arteries. Electronically signed by: Aron Escalona MD 12/05/2017 10:26 AM EDT
--- NOTE | 2017-12-05 13:36 | ECHRPT ---
Indication: CVA/TIA CONCLUSIONS Normal left ventricular size. Wall thickness is normal. No wall motion abnormalities. The left ventricular systolic function is normal with an estimated ejection fraction in the range of 60-65%. Trace mitral valve regurgitation. There is trace tricuspid valve regurgitation. The estimated pulmonary arterial pressure is 32 mmHg. BP: / HR: Rhythm: Sinus MEASUREMENTS (Male / Female) Normal Values Technical Quality:Fair 2D ECHO LV Diastolic Diameter PLAX 4.8 cm 4.2 - 5.9 / 3.9 - 5.3 cm LV Systolic Diameter PLAX 3.4 cm IVS Diastolic Thickness 0.8 cm 0.6 - 1.0 / 0.6 - 0.9 cm LVPW Diastolic Thickness 0.8 cm 0.6 - 1.0 / 0.6 - 0.9 cm LV Relative Wall Thickness 0.3 RV Internal Dim ED PLAX 2.8 cm LVOT Diameter 2.1 cm Aortic Root Diameter 3.1 cm LA Systolic Diameter LX 3.0 cm 3.0 - 4.0 / 2.7 - 3.8 cm M-MODE AV Cusp Separation MM 1.9 cm DOPPLER AV Peak Velocity 171.0 cm/s AV Peak Gradient 11.7 mmHg AV Mean Gradient 5.0 mmHg AV Velocity Time Integral 35.2 cm LVOT Peak Velocity 124.0 cm/s LVOT Peak Gradient 6.2 mmHg LVOT Velocity Time Integral 25.9 cm AV Area Cont Eq vti 2.5 cm AV Area Cont Eq pk 2.5 cm Mitral E Point Velocity 80.5 cm/s Mitral A Point Velocity 61.7 cm/s Mitral E to A Ratio 1.3 LV E' Lateral Velocity 15.0 cm/s Mitral E to LV E' Lateral Ratio 5.4 LV E' Septal Velocity 9.6 cm/s Mitral E to LV E' Septal Ratio 8.4 TR Peak Velocity 235.0 cm/s TR Peak Gradient 22.1 mmHg Right Atrial Pressure 10.0 mmHg Pulmonary Artery Systolic Pressu 32.1 mmHg Right Ventricular Systolic Press 32.1 mmHg PV Peak Velocity 63.9 cm/s PV Peak Gradient 1.6 mmHg FINDINGS LEFT VENTRICLE Normal left ventricular size. Wall thickness is normal. No wall motion abnormalities. The left ventricular systolic function is normal with an estimated ejection fraction in the range of 60-65%. RIGHT VENTRICLE Normal right ventricular size and systolic function. LEFT ATRIUM The left atrial size is normal. RIGHT ATRIUM The right atrial size is normal. ATRIAL SEPTUM No atrial level shunt is demonstrated by color flow Doppler interrogation. AORTA The aortic root and proximal ascending aorta are not well visualized. MITRAL VALVE Trace mitral valve regurgitation. AORTIC VALVE Trileaflet aortic valve. No aortic valve stenosis or regurgitation. TRICUSPID VALVE There is trace tricuspid valve regurgitation. The estimated pulmonary arterial pressure is 32 mmHg. PULMONARY VALVE No pulmonary valve regurgitation or stenosis. VESSELS The inferior vena cava is normal in size. PERICARDIUM No pericardial effusion. Ga Farr MD (Electronically Signed) Final Date:05 December 2017 13:35
--- NOTE | 2017-12-05 16:55 | MR ---
EXAM DATE: 12/05/2017 4:47 PM EDT AGE/SEX: 57 years / Female INDICATIONS: Right sided weakness. Slurred speech. CLINICAL DATA: This is the patient's initial encounter. Patient reports that signs and symptoms have been present for 2 days and indicates a pain score of 0/10. MEDICAL/SURGICAL HISTORY: Osteoporosis. Hepatitis C. Stroke. Fusion, cervical. Forearm. Bilat eral great toes. COMPARISON: [facility], CT HEAD W/O CONTRAST, 12/04/2017. . TECHNIQUE: Multiplanar, multisequence examination of the brain was performed without and with 6 ml Ga davist (gadobutrol) contrast as a single exam dose. FINDINGS: Cerebrum: The ventricles are normal for age. No evidence of midline shift, mass lesion, hemorrhage or acute infarction. No extraaxial fluid collections are seen. The pituitary gland and suprasellar cistern are normal in configuration. White Matter: No significant signal abnormalities are seen in the white matter. Posterior Fossa: The cerebellum and brainstem are intact. The 4th ventricle is midline. The cerebel lopontine angle is unremarkable. The cerebellar tonsils are normal in position. Diffusion Imaging: No focal areas of restricted diffusion are seen. No evidence of acute infarction . Extracranial: The visualized portions of the orbits and paranasal sinuses are unremarkable. Post Contrast: No abnormal areas of parenchymal or dural enhancement. No evidence of blood-brain ba rrier breakdown. CONCLUSION: 1. Unremarkable MRI examination of the brain. 2. Specifically, no evidence for acute infarction, mass or hemorrhage. Electronically signed by: Joao Riggs MD 12/05/2017 4:53 PM EDT
[2017-12-05] MEDS ORDERED: Gadobutrol PF 7.5 MMOL/7.5 ML Vial (for RAD) IV.SIG ONE (17:14)
--- NOTE | 2017-12-05 17:18 | MR ---
EXAM DATE: 12/05/2017 5:13 PM EDT AGE/SEX: 57 years / Female INDICATIONS: Right sided weakness. CLINICAL DATA: This is the patient's initial encounter. Patient reports that signs and symptoms have been present for 2 days and indicates a pain score of 0/10. MEDICAL/SURGICAL HISTORY: Hepatitis C. Stroke. Osteoporosis. Fusion, cervical. Forearm. Bilat eral great toes. COMPARISON: [facility], MR HEAD W & W/O CONTRAST, 12/05/2017. . TECHNIQUE: 3D [id number] MRA was performed. Source images, multiplanar STS MIP, and 3D volum e MIP reconstructions were reviewed. FINDINGS: Anterior Circulation: Intracranial Carotid Arteries: Patent. LUIZA: There is no evidence for aneurysm, vessel truncation or stenosis, and no evidence for vascular m alformation. MCA: There is no evidence for aneurysm, vessel truncation or stenosis, and no evidence for vascular m alformation. Posterior Circulation: Distal Vertebral Arteries: Distal Vertebral arteries are symetrical and patent. Basilar Artery: There is no evidence for aneurysm, vessel truncation or stenosis, and no evidence for vascular malformation. DESIGN MAKER and Cerebellar Branches: There is no evidence for aneurysm, vessel truncation or stenosis, and no evidence for vascular malformation. CONCLUSION: 1. Negative MRA Cow ([place]) non contrast. Electronically signed by: Joao Riggs MD 12/05/2017 5:17 PM EDT
[2017-12-06] MEDS: Lactobacillus Acidophilus/L. Spores Tablet PO SCH (08:12)
[2017-12-06] MEDS: Topiramate 100 MG Tablet PO SCH (08:12)
[2017-12-06] MEDS: Calcium/Vitamin D 250/125 MG Tablet PO SCH (08:13)
[2017-12-06] MEDS: Furosemide 20 MG Tablet PO SCH (08:13)
[2017-12-06] MEDS: Butalbital/APAP/Caff 50/325/40 MG Tablet PO PRN (10:02)
--- NOTE | 2017-12-06 12:26 | P.PNFP ---
Subjective Interval history: pt did well last evening but redeveloped headache and nausea with dizzyness will ct sinuses may need abx therapy Results - Labs Result diagrams: 12/04/17 16:30 12/04/17 16:30 - Imaging Impressions Head MRI 12/05/17 00:00 CONCLUSION: 1. Unremarkable MRI examination of the brain. 2. Specifically, no evidence for acute infarction, mass or hemorrhage. Head MRA 12/05/17 00:00 CONCLUSION: 1. Negative MRA [place] ([place]) non contrast. Physical Exam Vital signs: Vital Signs 12/05/17 15:00 12/05/17 20:00 12/06/17 00:00 Temperature 97.1 F L 97.1 F L 96.5 F L Pulse Rate 65 64 62 Respiratory Rate 20 20 20 Blood Pressure 102/58 L 106/59 L 104/59 L Pulse Oximetry 96 98 98 12/06/17 04:00 12/06/17 08:00 12/06/17 10:32 Temperature 96.1 F L 96.4 F L Pulse Rate 63 78 Respiratory Rate 20 20 18 Blood Pressure 98/47 L 98/67 L Pulse Oximetry 96 97 Intake & Output 12/05/17 12/06/17 12/06/17 18:59 06:59 18:59 Intake Total 960 / 960 240 / 240 Balance 960 / 960 240 / 240 Weight 66.4 kg Intake: Oral 960 / 960 240 / 240 Other: # Voids 4 4 Date of Last Bowel Movement 12/04/17 12/05/17 - Constitutional mild distress - Routine HEENT Exam Head: Present: normocephalic, atraumatic Eye: Present: EOMI, PERRL ENT: Present: mucous membranes moist - Routine Neck Exam Present: supple, full ROM - Routine Respiratory Exam Present: CTA bilaterally - Routine Cardiovascular Exam Present: RRR - Routine Abdominal Exam Present: soft, normoactive bowel sounds - Routine Neurological Exam Present: alert, oriented X3 Assessment and Plan - Assessment (1) Brain TIA Code(s): G45.9 - Transient cerebral ischemic attack, unspecified Status: Acute Plan: Neurology consult (2) Migraine Code(s): G43.909 - Migraine, unspecified, not intractable, without status migrainosus Status: Acute Plan: Cont home medications, (3) SVT (supraventricular tachycardia) Code(s): I47.1 - Supraventricular tachycardia Status: Acute Plan: Telemetry monitoring - Assessment and Plan Neurology consult- Mri/ Mra ordered for today today 12/06 await neuro recomendations on anticoagulation will ct sinuses for infection (1) Brain TIA Qualifiers: Transient cerebral ischemia type: unspecified Qualified Code(s): G45.9 - Transient cerebral ischemic attack, unspecified
[2017-12-06 12:55] VITALS: RESP 20
--- NOTE | 2017-12-06 13:06 | CT ---
EXAM DATE: 12/06/2017 12:14 PM EDT AGE/SEX: 57 years / Female INDICATIONS: Dizziness. CLINICAL DATA: This is the patient's initial encounter. Patient reports that signs and symptoms have been present for 1 day and indicates a pain score of 0/10. MEDICAL/SURGICAL HISTORY: Cerebrovascular disease. . Neck surgery RADIATION DOSE: 26.96 CTDI (mGy) COMPARISON: [facility], MR HEAD W & W/O CONTRAST, 12/05/2017. . TECHNIQUE: Contiguous axial thin-section CT images of the paranasal sinuses were performed. Using au tomated exposure control and adjustment of the mA and/or kV according to patient size, radiation dose was kept as low as reasonably achievable to obtain optimal diagnostic quality images. DICOM format image data is available electronically for review and comparison. FINDINGS: FINDINGS: Frontal Sinuses: No evidence of mucoperiosteal thickening or air-fluid level. Nasal Cavity: The septum is midline. The turbinates are intact. Olfactory Recesses: Symmetric and normal depth. Maxillary Sinuses: No evidence of mucoperiosteal thickening or air-fluid level. Multiple, small nasa l antral windows bilaterally. Outflow Tract: Right ostium measures 1.2 mm and the left 2.1 mm in diameter Ethmoid Sinuses: No evidence of mucoperiosteal thickening or air-fluid level. Sphenoid Sinuses: No evidence of mucoperiosteal thickening or air-fluid level. Other: The nasofrontal ducts are patent. The sphenoethmoidal recesses are patent. CONCLUSION: 1. Paranasal sinuses are well formed and normally aerated throughout. 2. Multiple small nasal antral windows bilaterally. Electronically signed by: Aron Escalona MD 12/06/2017 1:05 PM EDT
--- NOTE | 2017-12-06 16:17 | P.PNNEU ---
Subjective Subjective Comments: No acute events reported Had unilateral KRUEGER this am which has resolved. Active Medications: Active Medications Acetaminophen/Butalbital/Caffeine (Fioricet 50-325-40) 1 tab PO Q6H PRN PRN Reason: HEADACHE Last Admin: 12/06/17 10:02 Dose: 1 tab Calcium/Vitamin D (Oscal With D 250/125 Mg) 2 tab PO DAILY [facility] Last Admin: 12/06/17 08:13 Dose: 2 tab Carisoprodol (Soma) 350 mg PO BID PRN PRN Reason: Muscle Spasm Dabigatran (Pradaxa) 150 mg PO BID [facility] [place] Last Admin: 12/06/17 08:12 Dose: 150 mg Flumazenil (Romazecon Inj) 0.2 mg IV.PUSH Q1M PRN PRN Reason: OVERSEDATION Fluticasone Propionate (Flonase Nasal [place]) 1 spray EACH NARE DAILY PRN PRN Reason: ALLERGY SYMPTOMS Last Admin: 12/06/17 10:05 Dose: 1 spray Furosemide (Lasix) 20 mg PO DAILY [facility] [place] Last Admin: 12/06/17 08:13 Dose: 20 mg Haloperidol Lactate (Haldol Inj) 1 mg IV.PUSH Q15M PRN PRN Reason: for severe agitation Lactobacillus Acidophilus (Lactinex) 1 tab PO DAILY [facility] [place] Last Admin: 12/06/17 08:12 Dose: 1 tab Lorazepam (Ativan Inj) 1 mg IV.PUSH Q4H PRN PRN Reason: for CIWA 8-10 Lorazepam (Ativan Inj) 2 mg IV.PUSH Q1H PRN PRN Reason: for CIWA 15-20 Lorazepam (Ativan Inj) 2 mg IV.PUSH Q2H PRN PRN Reason: for CIWA 11-14 Lorazepam (Ativan) 2 mg PO Q2H PRN PRN Reason: for CIWA 11-14 Lorazepam (Ativan Inj) 2 mg IV.PUSH Q15M PRN PRN Reason: for CIWA > 20 Lorazepam (Ativan) 1 mg PO Q4H PRN PRN Reason: for CIWA 8-10 Miscellaneous (Pill Splitter) 1 each OTHER UNSCH PRN PRN Reason: SEE LABEL COMMENTS Multivitamins (Theragran) 1 tab PO DAILY [facility] Last Admin: 12/06/17 08:13 Dose: 1 tab Ondansetron HCl (Zofran Odt) 4 mg PO TID PRN PRN Reason: Nausea Pantoprazole Sodium (Protonix) 40 mg PO DAILY [facility] [place] Last Admin: 12/06/17 08:12 Dose: 40 mg Potassium Chloride (Klor-Con 10) 10 meq PO DAILY [facility] [place] Last Admin: 12/06/17 08:13 Dose: 10 meq Topiramate (Topamax) 75 mg PO BID [facility] [place] Tramadol HCl (Ultram) 50 mg PO Q6H PRN PRN Reason: Migraine Headache Allergies/Adverse Reactions: Allergies Allergy/AdvReac Type Severity Reaction Status Date / Time adhesive Allergy Severe Blisters Verified 12/04/17 17:14 Iodinated Contrast- Oral and AdvReac Intermediate Nausea Verified 12/04/17 17:14 IV Dye Physical Exam Vital signs: Vital Signs 12/05/17 20:00 12/06/17 00:00 12/06/17 04:00 Temperature 97.1 F L 96.5 F L 96.1 F L Pulse Rate 64 62 63 Respiratory Rate 20 20 20 Blood Pressure 106/59 L 104/59 L 98/47 L Pulse Oximetry 98 98 96 12/06/17 08:00 12/06/17 10:32 12/06/17 12:00 Temperature 96.4 F L 97.4 F L Pulse Rate 78 63 Respiratory Rate 20 18 20 Blood Pressure 98/67 L 113/67 Pulse Oximetry 97 97 Intake & Output 12/05/17 12/06/17 12/06/17 18:59 06:59 18:59 Intake Total 960 / 960 240 / 240 Balance 960 / 960 240 / 240 Weight 66.4 kg Intake: Oral 960 / 960 240 / 240 Other: # Voids 4 4 Date of Last Bowel Movement 12/04/17 12/05/17 - Routine Neurological Exam alert, oriented, speech normal CN intact MOTOR 5/5 BUE and BLE Objective Radiology Results: MRI brain--normal MRA brain--normal Carotid US--no significant stenosis ECHO-normal CT sinuses--normal Review/Management - Diagnosis (1) Migraine Code(s): G43.909 - Migraine, unspecified, not intractable, without status migrainosus Status: Acute Current Visit: Yes - Review/Management Plan: increase topamax to 75 mg bid for migraine. If she continues with intermittent migraine, consider changing to amovig Ok from neurologic standpoint to discharge Please follow up with me in office in 2-3 weeks
[2017-12-06 17:08] VITALS: BP 109/69; PULSE 66; TEMP 96.3; O2SAT 100
--- NOTE | 2017-12-06 17:24 | P.DS ---
Date of admission: 12/04/17 19:01 Primary care physician: Jamal Smith DO Brief History from admission: brought in by [facility] for gait disturbance and slurred speech. She voices she started to feel funny in [employer] parking lot.Developed pain behind left eye. She was talking to her son on phone he lives in [place]. When she got home her mother called [facility]. She has episode like this in past Hx of CVA in 2013, and multiple Tia in 2011. She is on Pradaxa. She see's Dr Sharp regularly for migraines. Hx of SVT with ablation and Hep- C. DS: Diagnosis - Discharge Diagnosis (1) Brain TIA Status: Acute (2) Migraine Status: Acute (3) SVT (supraventricular tachycardia) Status: Acute DS: Summary Hospital Course: Neuro consult, Workup completed no acute finding. DC home with [facility] neuro, Pcp - Time Spent with Patient Total time spent providing and/or coordinating discharge services: 30 Less than 30 minutes - Quality: AMI Clinical Trial Participant: No - Quality: Stroke Last date observed well: 12/04/17 - Quality: VTE Deep Vein Thrombosis/Pulmonary Embolism Present on Admission: No Exam Vital signs: Vital Signs 12/05/17 20:00 12/06/17 00:00 12/06/17 04:00 Temperature 97.1 F L 96.5 F L 96.1 F L Pulse Rate 64 62 63 Respiratory Rate 20 20 20 Blood Pressure 106/59 L 104/59 L 98/47 L Pulse Oximetry 98 98 96 12/06/17 08:00 12/06/17 10:32 12/06/17 12:00 Temperature 96.4 F L 97.4 F L Pulse Rate 78 63 Respiratory Rate 20 18 20 Blood Pressure 98/67 L 113/67 Pulse Oximetry 97 97 12/06/17 16:00 Temperature 96.3 F L Pulse Rate 66 Respiratory Rate 20 Blood Pressure 109/69 Pulse Oximetry 100 Intake & Output 12/05/17 12/06/17 12/06/17 18:59 06:59 18:59 Intake Total 960 / 960 240 / 240 Balance 960 / 960 240 / 240 Weight 66.4 kg Intake: Oral 960 / 960 240 / 240 Other: # Voids 4 4 Date of Last Bowel Movement 12/04/17 12/05/17 - Constitutional no acute distress - Routine HEENT Exam Eye: Present: PERRL ENT: Present: mucous membranes moist - Routine Neck Exam Present: supple - Routine Respiratory Exam Present: CTA bilaterally - Routine Cardiovascular Exam Present: RRR, S1, S2 - Routine Abdominal Exam Present: soft, normoactive bowel sounds - Routine Skin Exam Present: intact - Routine Neurological Exam Present: oriented X3, CN II-XII intact - Routine Psychiatric Exam Present: cooperative Results Procedures completed during hospitalization: None Completed studies during hospitalization: Chest X-Ray 12/04/17 16:47 CONCLUSION: 1. No acute cardiopulmonary disease. Head CT 12/04/17 16:47 CONCLUSION: 1. No acute intracranial abnormality. Report was called by Dr. Garvin to Dr. Dumont at 1701. Carotid Doppler Study 12/05/17 00:00 CONCLUSION: 1. Right Internal Carotid Artery: Proximal tortuosity but otherwise negative. No significant atherosclerotic plaquing. No sonographic or Doppler findings of a hemodynamically significant stenosis 2. Left Internal Carotid Artery: Proximal tortuosity but otherwise negative. No significant atherosclerotic plaquing. No sonographic or Doppler findings of a hemodynamically significant stenosis. 3. Antegrade flow in both vertebral arteries. Head MRI 12/05/17 00:00 CONCLUSION: 1. Unremarkable MRI examination of the brain. 2. Specifically, no evidence for acute infarction, mass or hemorrhage. Head MRA 12/05/17 00:00 CONCLUSION: 1. Negative MRA [place] ([place]) non contrast. Sinuses CT 18 00:00 CONCLUSION: 1. Paranasal sinuses are well formed and normally aerated throughout. 2. Multiple small nasal antral windows bilaterally. - Impressions ITS Impressions Chest X-Ray 12/04/17 16:47 CONCLUSION: 1. No acute cardiopulmonary disease. Head CT 12/04/17 16:47 CONCLUSION: 1. No acute intracranial abnormality. Report was called by Dr. Garvin to Dr. Dumont at 1701. Carotid Doppler Study 12/05/17 00:00 CONCLUSION: 1. Right Internal Carotid Artery: Proximal tortuosity but otherwise negative. No significant atherosclerotic plaquing. No sonographic or Doppler findings of a hemodynamically significant stenosis 2. Left Internal Carotid Artery: Proximal tortuosity but otherwise negative. No significant atherosclerotic plaquing. No sonographic or Doppler findings of a hemodynamically significant stenosis. 3. Antegrade flow in both vertebral arteries. Head MRI 12/05/17 00:00 CONCLUSION: 1. Unremarkable MRI examination of the brain. 2. Specifically, no evidence for acute infarction, mass or hemorrhage. Head MRA 12/05/17 00:00 CONCLUSION: 1. Negative MRA [place] ([place]) non contrast. Sinuses CT 12/06/17 00:00 CONCLUSION: 1. Paranasal sinuses are well formed and normally aerated throughout. 2. Multiple small nasal antral windows bilaterally. Discharge Plan - Discharge Disposition Patient Disposition: 01 Discharge Home - Discharge Condition Condition: Stable - Discharge Order Discharge Orders: Discharge Order (Routine); Ordered 12/06/17 Ordered By: Aurora Lira - Discharge Details Anticipated Discharge Date: 12/06/17 - Physicians Team Primary Care Provider: Jamal Smith Attending Provider: Jamal Smith Other Providers: [employer],Insurance - Rxs /Orders / Referrals /Forms Prescriptions: Continue aspirin [Aspirin Low Dose] 81 mg Tablet,Delayed Release (Dr/Ec) 81 mg PO DAILY calcium carbonate-vitamin D3 [Calcium 500 + D] 500 mg(1,250mg) -200 unit Tablet 1 tab PO TID carisoprodol 350 mg Tablet 350 mg PO BID PRN (Reason: Muscle Spasm) dabigatran etexilate [Pradaxa] 150 mg Capsule 150 mg PO BID diazepam [Valium] 5 mg Tablet 5 mg PO DAILY PRN (Reason: Anxiety) diclofenac sodium 75 mg Tablet,Delayed Release (Dr/Ec) 75 mg PO BID PRN (Reason: Pain) furosemide [Lasix] 20 mg Tablet 20 mg PO DAILY lactobacillus combination no.4 [Probiotic] 3 billion cell Capsule 3,000 mmu cells PO DAILY ondansetron 4 mg Tablet,Disintegrating 4 mg PO TID PRN (Reason: Nausea) pantoprazole 40 mg Tablet,Delayed Release (Dr/Ec) 40 mg PO DAILY potassium chloride 10 mEq Tablet Extended Release 10 meq PO DAILY topiramate 50 mg Tablet 50 mg PO BID tramadol 50 mg Tablet 50 mg PO Q6H PRN (Reason: Migraine Headache) triamcinolone acetonide [Nasacort] 55 mcg Aerosol,[place] 1 spray INTRANASAL DAILY PRN (Reason: Allergy Symptoms) No Action multivitamin Tablet 1 tab PO DAILY Referrals: Jamal Smith, DO [Primary Care Provider] - See Instructions (Follow up in 1 week) Anand Sharp MD, PhD [Physician] - See Instructions (Follow up 1-2 weeks) - Discharge Instructions Patient Printed Instructions: Topiramate (By mouth), Migraine Headache (ED), Alcohol Intoxication (DC), At-Risk Alcohol Use (DC), Acute Delirium (DC) Additional Instructions: Please call the physician's office to book the appointment to be seen within 3 weeks Your Health Problems: Goals to Promote Your Health: * To prevent worsening of your condition * To maintain your health at the optimal level Directions to Meet Your Goals: * Take your medications as prescribed * Follow your dietary instruction * Follow activity as directed * Keep your appointments as scheduled * Take your immunizations and boosters as scheduled * If your symptoms worsen call your PCP * If no PCP go to Urgent Care or Emergency Room Smoking is dangerous to your health. Avoid second hand smoke. You may reach the 24-hour crisis hotline for domestic abuse at . - Post Discharge Care Plan Care Plan Goals: Please call the physician's office to book the appointment to be seen within 3 weeks Your Health Problems: Goals to Promote Your Health: * To prevent worsening of your condition * To maintain your health at the optimal level Directions to Meet Your Goals: * Take your medications as prescribed * Follow your dietary instruction * Follow activity as directed * Keep your appointments as scheduled * Take your immunizations and boosters as scheduled * If your symptoms worsen call your PCP * If no PCP go to Urgent Care or Emergency Room Smoking is dangerous to your health. Avoid second hand smoke. You may reach the 24-hour crisis hotline for domestic abuse at .
[2017-12-06] MEDS ORDERED: Topiramate 100 MG Tablet PO SCH (21:00)
== END 2017-12-06 18:47 | disposition home or self-care (01) ==
LOC: PHED 16:43 → PHEDA 16:43 → PH3 18:36
PROVIDERS: ADMIT Family Medicine; ATTEND Family Medicine